=== PATIENT | female | born 1950 | race Hispanic/Latino ===

== ENCOUNTER 2016-09-08 10:02 | Emergency (ER) | payer OTHER ==
[2016-09-08 10:03] VITALS: BMI 25.8
[2016-09-08 10:22] VITALS: BP 136/80; PULSE 90; RESP 16; TEMP 98.5; O2SAT 98
--- NOTE | 2016-09-08 14:13 | ED PDOC ---
Arrival/HPI - General Chief Complaint: Eye Problem Time Seen by Provider: 09/08/16 10:09 Historian: Patient - History of Present Illness Narrative History of Present Illness (Text): 09/08/16 10:15 A 65 year old female presents to the emergency department complaining of left eye pain. Patient states she fell asleep by accident with contacts in. Notes this morning her left contact came out spontaneously. Patient denies trauma or feelings of any foreign bodies in eye. Minimal pain with movement. Patient denies any discharge from eye or any other complaints at this time. Symptom Onset: Sudden Symptom Course: Unchanged Activities at Onset: Rest Context: Home Past Medical History - Provider Review Nursing Documentation Reviewed: Yes - Past History Past History: Non-Contributing - Infectious Disease Hx of Infectious Diseases: None - Tetanus Immunization Tetanus Immunization: >10 years Ago - Reproductive Menopause: Yes - Cardiac Hx Pacemaker: No - Neurological Hx Paralysis: No - Hematological/Oncological Hx Blood Transfusions: No Hx Blood Transfusion Reaction: No - Musculoskeletal/Rheumatological Hx Musculoskeletal Disorders: Yes - Gastrointestinal Hx Gastroesophageal Reflux: Yes - Psychiatric Hx Emotional Abuse: No Hx Physical Abuse: No Hx Substance Use: No - Surgical History Hx Cholecystectomy: Yes Hx Orthopedic Surgery: Yes - Anesthesia Hx Anesthesia Reactions: No Hx Malignant Hyperthermia: No - Suicidal Assessment Feels Threatened In Home Enviroment: No Family/Social History - Physician Review Nursing Documentation Reviewed: Yes Family/Social History: No Known Family HX Smoking Status: Never Smoked Hx Alcohol Use: Yes (socially) Hx Substance Use: No Hx Substance Use Treatment: No Allergies/Home Meds Allergies/Adverse Reactions: Allergies Penicillins Allergy (Verified 08/20/15 22:44) ANAPHYLAXIS Home Medications: Home Meds Medication Instructions Recorded Confirmed Atorvastatin Calcium [Lipitor] 40 mg PO HS 12/03/13 09/08/16 DULoxetine [Cymbalta] 60 mg PO QAM 12/03/13 09/08/16 Topiramate [Topamax] 400 mg PO DAILY 09/08/16 09/08/16 Zolpidem [Ambien] 10 mg PO HS 09/08/16 09/08/16 Review of Systems - Physician Review All systems were reviewed & negative as marked: Yes - Review of Systems Constitutional: absent: Fevers Eyes: Eye Pain (left; no discharge) Neurological: absent: Headache Physical Exam Vital Signs Reviewed: Yes Vital Signs Temp Pulse Resp BP Pulse Ox 09/08/16 10:13 98.5 F 90 16 136/80 98 Temperature: Afebrile Blood Pressure: Normal Pulse: Regular Respiratory Rate: Normal Appearance: Positive for: Well-Appearing, Non-Toxic, Comfortable Pain Distress: None Mental Status: Positive for: Alert and Oriented X 3 - Systems Exam Head: Present: Atraumatic, Normocephalic Pupils: Present: PERRL Extroacular Muscles: Present: EOMI Conjunctiva: Present: Injected Mouth: Present: Moist Mucous Membranes Neck: Present: Normal Range of Motion Respiratory/Chest: Present: Clear to Auscultation, Good Air Exchange. No: Respiratory Distress, Accessory Muscle Use Cardiovascular: Present: Regular Rate and Rhythm, Normal S1, S2. No: Murmurs Abdomen: Present: Normal Bowel Sounds. No: Tenderness, Distention, Peritoneal Signs Back: Present: Normal Inspection Upper Extremity: Present: Normal Inspection. No: Cyanosis, Edema Lower Extremity: Present: Normal Inspection. No: Edema Neurological: Present: GCS=15, CN II-XII Intact, Speech Normal Skin: Present: Warm, Dry, Normal Color. No: Rashes Psychiatric: Present: Alert, Oriented x 3, Normal Insight, Normal Concentration Medical Decision Making ED Course and Treatment: 09/08/16 10:15 Impression: A 65 year old female with left eye pain. Plan: -- Reassess and disposition Prior Visits: Notes and results from previous visits were reviewed. Patient last reported to the emergency department on 08/20/15 for evaluation of head injury s/p mechanical fall. Progress Notes: 09/08/16 10:17 No pathology on fundoscopic exam; fluorescence negative for uptake. Patient will need to follow up with mission systems engineer in a couple of days. Patient was given prescriptions for eye drops. - Scribe Statement The provider has reviewed the documentation as recorded by the Asmita Caldwell Provider Scribe Attestation: All medical record entries made by the Scribsamara were at my direction and personally dictated by me. I have reviewed the chart and agree that the record accurately reflects my personal performance of the history, physical exam, medical decision making, and the department course for this patient. I have also personally directed, reviewed, and agree with the discharge instructions and disposition. Disposition/Present on Arrival - Present on Arrival Any Indicators Present on Arrival: No History of DVT/PE: No History of Uncontrolled Diabetes: No Urinary Catheter: No History of Decub. Ulcer: No History Surgical Site Infection Following: None - Disposition Have Diagnosis and Disposition been Completed?: Yes Diagnosis: Irritation of left eye Disposition: HOME/ ROUTINE Disposition Time: 10:30 Condition: GOOD Discharge Instructions (ExitCare): Eye Pain (ED) Additional Instructions: Thank you for letting us take care of you today. Your provider was Dr. Levy. You were treated for left eye pain. The emergency medical care you received today was directed at your acute symptoms. If you were prescribed any medication, please fill it and take as directed. It may take several days for your symptoms to resolve. Return to the Emergency Department if your symptoms worsen, do not improve, or if you have any other problems. Please contact your doctor or call one of the physicians/clinics you have been referred to that are listed on the Patient Visit Information form that is included in your discharge packet. Bring any paperwork you were given at discharge with you along with any medications you are taking to your follow up visit. Our treatment cannot replace ongoing medical care by a primary care provider (PCP) outside of the emergency department. Thank you for allowing the [facility] team to be part of your care today. Follow up with your eye doctor in 3-4 days if symptoms persist. Prescriptions: Polymyxin/Trimethoprim Sulfate [Polytrim Ophth Soln] 1 drop OD Q4 #1 bottle Referrals: Caitlin Nicole, [Primary Care Provider] - Follow up with primary
== END 2016-09-08 10:49 | disposition home or self-care (01) ==
LOC: ED 10:02
DX: H57.8 Other specified disorders of eye and adnexa (principal)

== ENCOUNTER 2017-02-07 12:41 | Emergency (ER) | payer OTHER ==
[2017-02-07 12:41] VITALS: BMI 25.8
[2017-02-07 12:56] VITALS: TEMP 97.9
[2017-02-07] MEDS ORDERED: Sodium Chloride 0.9% 500 ML IV STA (12:56)
--- NOTE | 2017-02-07 13:02 | ED PDOC ---
Arrival/HPI - General Chief Complaint: Dizziness/Lightheaded Time Seen by Provider: 02/07/17 12:46 Historian: Patient - History of Present Illness Narrative History of Present Illness (Text): 02/07/17 12:59 A 66 year old female presents to the emergency department complaining of 4 day history of feeling dizzy and lightheaded and near syncopal along with a generalized global headache. She's had some palpitations. Some nausea but no vomiting. No numbness tingling or paresthesias. There's been some generalized, but no focal, weakness. No chest pain. No abdominal pain or diarrhea. Poor by mouth intake. She also reports hypertension, and her blood pressure is usually around 100. No genitourinary symptoms. No fever or chills. No travel or exposure. No injury or trauma. No neck or back pain. She reports she just doesn' t feel well. Time/Duration: Other (4 days) Symptom Onset: Gradual Symptom Course: Unchanged Severity Level: Moderate Activities at Onset: Rest Past Medical History - Provider Review Nursing Documentation Reviewed: Yes - Past History Past History: Non-Contributing - Infectious Disease Hx of Infectious Diseases: None - Tetanus Immunization Tetanus Immunization: >10 years Ago - Reproductive Currently : No - Cardiac Hx Pacemaker: No - Neurological Hx Paralysis: No - Hematological/Oncological Hx Blood Transfusions: No Hx Blood Transfusion Reaction: No - Musculoskeletal/Rheumatological Hx Musculoskeletal Disorders: Yes - Gastrointestinal Hx Gastroesophageal Reflux: Yes - Psychiatric Hx Emotional Abuse: No Hx Physical Abuse: No Hx Substance Use: No - Surgical History Hx Cholecystectomy: Yes Hx Orthopedic Surgery: Yes - Anesthesia Hx Anesthesia Reactions: No Hx Malignant Hyperthermia: No - Suicidal Assessment Feels Threatened In Home Enviroment: No Family/Social History - Physician Review Nursing Documentation Reviewed: Yes Family/Social History: Unknown Family HX Smoking Status: Never Smoked Hx Alcohol Use: Yes (socially) Hx Substance Use: No Hx Substance Use Treatment: No Allergies/Home Meds Allergies/Adverse Reactions: Allergies Penicillins Allergy (Verified 08/20/15 22:44) ANAPHYLAXIS Home Medications: Home Meds Medication Instructions Recorded Confirmed Atorvastatin Calcium [Lipitor] 40 mg PO HS 12/03/13 09/08/16 DULoxetine [Cymbalta] 60 mg PO QAM 12/03/13 09/08/16 Topiramate [Topamax] 400 mg PO DAILY 09/08/16 09/08/16 Zolpidem [Ambien] 10 mg PO HS 09/08/16 09/08/16 Review of Systems - Physician Review All systems were reviewed & negative as marked: Yes - Review of Systems Constitutional: Fatigue. absent: Fevers Respiratory: absent: SOB, Cough, Sputum Cardiovascular: Palpitations. absent: Chest Pain, Syncope Gastrointestinal: Nausea, Anorexia. absent: Abdominal Pain, Constipation, Diarrhea, Vomiting Genitourinary Female: absent: Dysuria, Frequency, Hematuria Neurological: Headache, Dizziness. absent: Focal Weakness, Gait Changes, Speech Changes, Facial Droop, Disequilibrium, Seizure Physical Exam Vital Signs Reviewed: Yes Vital Signs Temp Pulse Resp BP Pulse Ox 02/07/17 15:16 75 18 133/80 98 02/07/17 14:14 86 16 156/100 H 98 02/07/17 13:28 90 173/100 H 02/07/17 12:53 97.9 F 90 19 179/100 H 100 Temperature: Afebrile Blood Pressure: Hypertensive Pulse: Regular Respiratory Rate: Normal Appearance: Positive for: Well-Appearing, Non-Toxic, Comfortable Pain Distress: None Mental Status: Positive for: Alert and Oriented X 3 - Systems Exam Head: Present: Atraumatic, Normocephalic Pupils: Present: PERRL Extroacular Muscles: Present: EOMI Conjunctiva: Present: Normal Ears: Present: NORMAL TM, Normal Canal. No: Erythema Mouth: Present: Moist Mucous Membranes Pharnyx: No: ERYTHEMA, EXUDATE, TONSILS ENLARGED Neck: Present: Normal Range of Motion Respiratory/Chest: Present: Clear to Auscultation, Good Air Exchange. No: Respiratory Distress, Accessory Muscle Use Cardiovascular: Present: Regular Rate and Rhythm, Normal S1, S2. No: Murmurs Abdomen: Present: Normal Bowel Sounds. No: Tenderness, Distention, Peritoneal Signs, Rebound, Guarding Upper Extremity: Present: Normal Inspection. No: Cyanosis, Edema Lower Extremity: Present: Normal Inspection. No: Edema Neurological: Present: GCS=15, CN II-XII Intact, Speech Normal, Motor Func Grossly Intact, Normal Sensory Function, Normal Cerebellar Funct, Gait Normal Skin: Present: Warm, Dry, Normal Color. No: Rashes Psychiatric: Present: Alert, Oriented x 3, Normal Insight, Normal Concentration Medical Decision Making ED Course and Treatment: 02/07/17 13:38 EKG shows normal sinus rhythm rate approximately [address] or T-wave changes 02/07/17 13:53 Chest xray: Creator : Graeme Walden MD FINDINGS: LUNGS: No active pulmonary disease. PLEURA: No significant pleural effusion identified, no pneumothorax apparent. CARDIOVASCULAR: Normal. OSSEOUS STRUCTURES: No significant abnormalities. VISUALIZED UPPER ABDOMEN: Normal. IMPRESSION: No active disease. 02/07/17 14:19 CT HEAD WITHOUT CONTRAST Creator : Graeme Walden MD FINDINGS: HEMORRHAGE: No intracranial hemorrhage. BRAIN: No mass effect or edema. No atrophy or chronic microvascular ischemic changes. VENTRICLES: Unremarkable. No hydrocephalus. CALVARIUM: Unremarkable. PARANASAL SINUSES: Unremarkable as visualized. No significant inflammatory changes. MASTOID AIR CELLS: Unremarkable as visualized. No inflammatory changes. IMPRESSION: Normal CT of the Head. 02/07/17 15:17 Patient feels better and is up walking in the emergency department without any dizziness. Her blood pressure is markedly improved. She is instructed to follow- up with her PMD as soon as possible for possible hypertension treatment. Follow- up in the ER as needed. - Lab Interpretations Lab Results: 02/07/17 13:10 02/07/17 13:10 Lab Results 02/07/17 13:10: Sodium 142, Potassium 3.6, Chloride 109 H, Carbon Dioxide 23, Anion Gap 14, BUN 17, Creatinine 0.8, Est GFR ( Amer) > 60, Est GFR (Non- Af Amer) > 60, Random Glucose 101, Calcium 9.6, Phosphorus 3.5, Magnesium 2.1, Total Bilirubin 0.3, AST 29, ALT 28, Alkaline Phosphatase 75, Lactate Dehydrogenase 466, Total Creatine Kinase 95, Troponin I < 0.01, Total Protein 8.1, Albumin 4.7, Globulin 3.4, Albumin/Globulin Ratio 1.4 02/07/17 13:10: Urine Color Yellow, Urine Appearance Clear, Urine pH 6.5, Ur Specific [place] 1.010, Urine Protein Negative, Urine Glucose (UA) Negative, Urine Ketones Negative, Urine Blood Negative, Urine Nitrate Negative, Urine Bilirubin Negative, Urine Urobilinogen 0.2, Ur Leukocyte Esterase Trace H, Urine RBC Negative, Urine WBC 0 - 2 02/07/17 13:10: WBC 6.0, RBC 4.29, Hgb 13.1, Hct 40.1, MCV 93.5, MCH 30.5, MCHC 32.7, RDW 13.7, Plt Count 251, MPV 9.3, Gran % 59.7, Lymph % (Auto) 29.5, [place] % (Auto) 6.8 H, Eos % (Auto) 2.8, Baso % (Auto) 1.2, Gran # 3.57, Lymph # 1.8, [place] # 0.4, Eos # 0.2, Baso # 0.07 I have reviewed the lab results: Yes - RAD Interpretation Radiology Orders: 02/07/17 12:56 HEAD W/O CONTRAST [CT] Stat 02/07/17 12:57 CHEST PORTABLE [RAD] Stat Chest 1 view shows no infiltrate effusion or cardiomegaly. CT scan of the head as read by the radiologist is normal. Shipping Room Helper: Radiologist - EKG Interpretation Interpreted by ED Physician: Yes Type: 12 lead EKG - Medication Orders Current Medication Orders: Discontinued Medications Clonidine HCl (Catapres) 0.1 mg PO ONCE ONE Stop: 02/07/17 12:58 Clonidine HCl (Catapres) 0.1 mg PO ONCE ONE Stop: 02/07/17 13:01 Last Admin: 02/07/17 13:28 Dose: 0.1 mg MAR Pulse and Blood Pressure Document 02/07/17 13:28 AD (Rec: 02/07/17 13:28 AD [id number]) Pulse Pulse Rate (60-90 beats/min) 90 Blood Pressure Blood Pressure (100/60-150/90 mm Hg) 173/100 Sodium Chloride (Sodium Chloride 0.9%) 500 mls @ 1,000 mls/hr IV .Q30M STA Stop: 02/07/17 13:25 Last Admin: 02/07/17 13:27 Dose: 1,000 mls/hr eMAR Start Stop Document 02/07/17 13:27 AD (Rec: 02/07/17 13:27 AD [id number]) Intravenous Solution Start Date 02/07/17 Start Time 13:27 Ondansetron HCl (Zofran Inj) 4 mg IVP ONCE ONE Stop: 02/07/17 12:58 Last Admin: 02/07/17 13:27 Dose: 4 mg IVP Administration Document 02/07/17 13:27 AD (Rec: 02/07/17 13:27 AD [id number]) Charges for Administration # of IVP Administrations 1 Disposition/Present on Arrival - Present on Arrival Any Indicators Present on Arrival: No History of DVT/PE: No History of Uncontrolled Diabetes: No Urinary Catheter: No History of Decub. Ulcer: No History Surgical Site Infection Following: None - Disposition Have Diagnosis and Disposition been Completed?: Yes Diagnosis: Dizziness, Hypertension Disposition: HOME/ ROUTINE Disposition Time: 15:18 Patient Plan: Discharge Condition: IMPROVED Discharge Instructions (ExitCare): Dizziness (ED), Hypertension (ED) Prescriptions: Hydrochlorothiazide [Microzide] 12.5 mg PO DAILY #14 cap Referrals: Kee Leblanc MD [Primary Care Provider] - Follow up with primary Forms: [employer] ([place])
[2017-02-07 13:23] LABS: BASO # 0.07 K/mm3 (0.0-2.0); BASO % 1.2 % (0.0-3.0); EOS # 0.2 (0.0-0.7); EOS % 2.8 % (1.5-5.0); GRAN # 3.57 (1.4-6.5); GRAN % 59.7 % (50.0-68.0); HEMATOCRIT 40.1 % (36.0-48.0); LYMPH # 1.8 (1.2-3.4); LYMPH % 29.5 % (22.0-35.0); MEAN CELL VOLUME 93.5 fl (80.0-105.0); MEAN CORPUSCULAR HEMOGLOBIN 30.5 pg (25.0-35.0); MEAN CORPUSCULAR HGB CONC 32.7 g/dl (31.0-37.0); MEAN PLATELET VOLUME 9.3 fl (7.0-11.0); MONO # 0.4 (0.1-0.6); MONO % 6.8 % (1.0-6.0); RED CELL DISTRIBUTION WIDTH 13.7 % (11.5-14.5)
[2017-02-07 13:24] LABS: PH,URINE 6.5 (4.7-8.0); URINE BILIRUBIN NEGATIVE (NEGATIVE); URINE BLOOD NEGATIVE (NEGATIVE); URINE GLUCOSE (UA) NEGATIVE (NEGATIVE); URINE KETONE NEGATIVE (NEGATIVE); URINE LEUKOCYTE ESTERASE TRACE Leu/uL (NEGATIVE); URINE PROTEIN NEGATIVE mg/dL (<30 mg/dL); URINE UROBILINOGEN 0.2 E.U./dL (<1 E.U./dL)
[2017-02-07 13:25] LABS: URINE APPEARANCE CLEAR (CLEAR); URINE COLOR YELLOW (YELLOW)
[2017-02-07 13:31] LABS: URINE RBC NEGATIVE /hpf (0-2); URINE WBC 0 - 2 /hpf (0-6)
[2017-02-07 13:33] LABS: ALB/GLOB RATIO 1.4 (1.1-1.8); ALKALINE PHOSPHATASE 75 U/L (38-126); ALT/SGPT 28 U/L (7-56); AST/SGOT 29 U/L (14-36); BILIRUBIN,TOTAL 0.3 mg/dL (0.2-1.3); BLOOD UREA NITROGEN 17 mg/dL (7-21); CALCIUM 9.6 mg/dL (8.4-10.5); CARBON DIOXIDE 23 mmol/L (21-33); CHLORIDE 109 mmol/L (98-107); GFR AFRICAN-AMERICAN > 60; GLUCOSE,RANDOM 101 mg/dL (70-110); MAGNESIUM 2.1 mg/dL (1.7-2.2); PHOSPHOROUS 3.5 mg/dL (2.5-4.5); POTASSIUM 3.6 mmol/L (3.6-5.0); SODIUM 142 mmol/L (132-148); TOTAL PROTEIN 8.1 g/dL (5.8-8.3)
[2017-02-07 13:44] LABS: TROPONIN I < 0.01 ng/mL
--- NOTE | 2017-02-07 13:50 | RAD ---
HISTORY: dizzy COMPARISON: No prior. FINDINGS: LUNGS: No active pulmonary disease. PLEURA: No significant pleural effusion identified, no pneumothorax apparent. CARDIOVASCULAR: Normal. OSSEOUS STRUCTURES: No significant abnormalities. VISUALIZED UPPER ABDOMEN: Normal. OTHER FINDINGS: None. IMPRESSION: No active disease.
[2017-02-07 14:15] VITALS: O2SAT 98
--- NOTE | 2017-02-07 14:18 | CT ---
PROCEDURE: CT HEAD WITHOUT CONTRAST. HISTORY: dizzy COMPARISON: 08/20/2015 TECHNIQUE: Axial computed tomography images were obtained through the head/brain without intravenous contrast. Radiation dose: Total exam DLP = 629 mGy-cm. This CT exam was performed using one or more of the following dose reduction techniques: Automated exposure control, adjustment of the mA and/or kV according to patient size, and/or use of iterative reconstruction technique. FINDINGS: HEMORRHAGE: No intracranial hemorrhage. BRAIN: No mass effect or edema. No atrophy or chronic microvascular ischemic changes. VENTRICLES: Unremarkable. No hydrocephalus. CALVARIUM: Unremarkable. PARANASAL SINUSES: Unremarkable as visualized. No significant inflammatory changes. MASTOID AIR CELLS: Unremarkable as visualized. No inflammatory changes. OTHER FINDINGS: None. IMPRESSION: Normal CT of the Head.
[2017-02-07 15:16] VITALS: BP 133/80; PULSE 75; RESP 18
--- NOTE | 2017-02-07 23:56 | CARD ---
APPROVED REPORT EKG Measurement Heart [id number] <Conclusion> Normal sinus rhythm Normal ECG
== END 2017-02-07 15:40 | disposition home or self-care (01) ==
LOC: ED 12:41
DX: I10 Essential (primary) hypertension (principal); R42 Dizziness and giddiness
CPT/HCPCS: 70450; 71010; 80053; 81001; 82550; 83615; 83735; 84100; 84484; 85025; 87086; 93005; 96374; 99285; J2405; J7040

== ENCOUNTER 2018-04-25 08:40 | Outpatient (CLI) | payer OTHER | END 2018-04-25 08:41 | disposition home or self-care (01) | LOC: LAB 08:40 ==

== ENCOUNTER 2018-05-26 08:08 | Outpatient (CLI) | payer OTHER | END 2018-05-26 08:09 | disposition home or self-care (01) | LOC: LAB 08:08 ==

== ENCOUNTER 2018-05-29 14:56 | Outpatient (CLI) | payer OTHER | END 2018-05-30 13:14 | disposition home or self-care (01) | LOC: RAD 14:56 ==

== ENCOUNTER 2018-07-19 08:55 | Outpatient (CLI) | payer OTHER | END 2018-07-19 08:56 | disposition home or self-care (01) | LOC: LAB 08:55 ==